=== PATIENT | female | born 1960 | race Caucasian/White ===

== ENCOUNTER 2016-12-19 08:02 | Outpatient (CLI) | payer BC ==
[2016-12-19] MEDS ORDERED: Gadobenate Dimeglumine 529 MG/1 ML (20ML VIAL) ONE (09:00)
--- NOTE | 2016-12-20 06:43 | MRI ---
MRI OF THE PELVIS WITH AND WITHOUT CONTRAST: Indication: Radiculopathy in the lumbosacral region. Patient is having low back pain that radiates d own the left leg. Technique: Multiplanar, multisequence MRI images of the pelvis obtained with and without contrast. 1 4 cc of MultiHance was utilized for exam. FINDINGS: There is mild tendinosis of the left gluteus minimus and medius. There is a partial thickness tear i nvolving the posterior left gluteus minimus seen on Image 25 of Series 14, and Image 23 of Series 5. No muscular atrophy is evident. No iliopsoas bursitis is evident. The sciatic nerve appears within n ormal limits. The left hamstring and left fibrous origin appears within normal limits. No free fluid is evident. There is mild degenerative changes of the left hip. No acute fracture is demonstrated. No enlarged lymph nodes are evident. The visualized sacral neural foramina appear within normal limi ts. IMPRESSION: 1. Partial thickness tear of the posterior left gluteus minimus tendon at the level of the insertion . Mild left gluteus medius and minimus tendinosis. 2. Mild degenerative arthrosis of the left hip. POS: [facility]
== END 2016-12-19 08:03 | disposition home or self-care (01) ==
LOC: SCSMRI 08:02
PROVIDERS: ATTEND Specialist
DX: M54.17 Radiculopathy, lumbosacral region (principal); S39.013A Strain of muscle, fascia and tendon of pelvis, initial encounter; M76.02 Gluteal tendinitis, left hip
CPT/HCPCS: 72197; A9579

== ENCOUNTER 2017-10-05 08:55 | Outpatient (CLI) | payer BC ==
--- NOTE | 2017-10-08 13:23 | MMO ---
BILATERAL SCREENING MAMMOGRAM: Date: 10/05/17 HISTORY: Screening. COMPARISON: Mammograms from 2016 and 2013. TECHNIQUE: Bilateral screening CC and MLO mammograms. This patient's mammogram was interpreted with the assistance of computer-aided detection. FINDINGS: There are scattered fibroglandular densities. Asymmetry left breast is similar in the posterior depth seen on the CC only. No suspicious mass, architectural distortion, or microcalcifications. IMPRESSION: BIRADS 2: Benign Finding(s) Continued annual mammographic screening is recommended. POS: [facility]
== END 2017-10-05 08:56 | disposition home or self-care (01) ==
LOC: SCSMAMMO 08:55
PROVIDERS: ATTEND Obstetrics & Gynecology
DX: Z12.31 Encounter for screening mammogram for malignant neoplasm of breast (principal)
CPT/HCPCS: 77067